=== PATIENT | female | born 1990 | race Caucasian/White ===

== ENCOUNTER → 2017-03-01 | Outpatient (REF) | payer OTHER | LOC: M LAB REF 16:48 | PROVIDERS: ATTEND Advanced Practice Midwife | DX: Z36.89 Encounter for other specified antenatal screening (principal); Z3A.00 Weeks of gestation of pregnancy not specified ==

== ENCOUNTER 2017-04-02 07:34 | Inpatient (IN) | payer OTHER ==
[2017-04-02] MEDS: PENICILLIN G POTASSIUM IV 5 MU in D5W MINI-BAG PLUS 100 ML IV ×2 (07:09→22:53)
[2017-04-02 10:13] LABS: HEMATOCRIT 36.3 % (36.0-47.0); MEAN CORPUSCULAR HEMOGLOBIN 28.5 pg (27.0-33.0); MEAN CORPUSCULAR HGB CONC 33.1 g/dl (32.0-36.5); MEAN CORPUSCULAR VOLUME 86.2 fl (80.0-96.0); PLATELET COUNT, AUTOMATED 262 10^3/uL (150-450); RED BLOOD COUNT 4.21 10^6/uL (4.00-5.40); RED CELL DISTRIBUTION WIDTH 13.8 % (11.5-14.5); WHITE BLOOD COUNT 12.3 10^3/uL (4.0-10.0)
[2017-04-02] MEDS: miSOPROStol 50 MCG 1/2 TAB (S0191) PO ×3 (10:20→18:34)
[2017-04-02 10:35] LABS: AMPHETAMINES URINE REFLEX NEGATIVE (NEGATIVE); BARBITURATES URINE REFLEX NEGATIVE (NEGATIVE); BENZODIAZEPINES URINE REFLEX NEGATIVE (NEGATIVE); CANNABINOIDS URINE REFLEX NEGATIVE (NEGATIVE); COCAINE METABOLITE URINE REFLE NEGATIVE (NEGATIVE); METHADONE URINE REFLEX NEGATIVE (NEGATIVE); OPIATES URINE REFLEX NEGATIVE (NEGATIVE); PHENCYCLIDINE URINE REFLEX NEGATIVE (NEGATIVE)
[2017-04-02 10:38] LABS: ALT/SGPT 17 U/L (12-78); AST/SGOT 17 U/L (7-37); BILIRUBIN,TOTAL 0.2 MG/DL (0.2-1.0); CREATININE FOR GFR 0.55 MG/DL (0.55-1.02); GLOMERULAR FILTRATION RATE > 60.0 (>60); LDH LACTATE DEHYDROGENASE 169 U/L (84-246); URIC ACID 4.5 MG/DL (2.6-6.0)
[2017-04-02] MEDS ORDERED: PENICILLIN G POTASSIUM IV 2.5 MU in APPROPRIATE DILUENT 1 EA IV (13:15)
[2017-04-02] MEDS: OXYTOCIN DRIP 30 UNITS in APPROPRIATE DILUENT 1 EA IV (22:50)
[2017-04-02] MEDS: LR 1,000 ML IV (22:50)
[2017-04-03] MEDS: LR 1,000 ML IV ×2 (00:30→06:35)
[2017-04-03] MEDS ORDERED: FENTANYL 2MCG/ML ROPIVACAINE 0.2% IN 0.9% NACL 200ML IVBAG As Ordered (00:45)
[2017-04-03] MEDS ORDERED: ePHEDrine SULFATE 25 MG/5 ML(5MG/ML) SYRINGE As Ordered (01:59)
[2017-04-03] MEDS: ePHEDrine SULFATE 25 MG/5 ML(5MG/ML) SYRINGE IV ×3 (02:03→07:40)
[2017-04-03] MEDS ORDERED: NALOXONE INJ 0.4 MG/1 ML VIAL (J2310) IV (02:15)
[2017-04-03] MEDS ORDERED: EPIDURAL/PCA KEYS XX (02:15)
[2017-04-03] MEDS ORDERED: diphenhydrAMINE INJ 50MG/ML VIAL (J1200) IV (02:15)
[2017-04-03] MEDS ORDERED: REFRIGERATOR IV KEYS XX (02:15)
[2017-04-03] MEDS ORDERED: EPIDURAL COMMENT XX (02:15)
[2017-04-03] MEDS ORDERED: ONDANSETRON 4MG/2ML VIAL (J2405) IV (02:15)
[2017-04-03] MEDS: PENICILLIN G POTASSIUM IV 2.5 MU in APPROPRIATE DILUENT 1 EA IV ×3 (03:06→11:09)
[2017-04-03] MEDS: FENTANYL/ROPIVACAINE/NACL BAG 200 ML EPIDURAL (07:09)
[2017-04-03 13:54] LABS: CORD GAS ABE V -10.1; CORD GAS HCO3 V 20.5 MEQ/L; CORD GAS O2 SAT V 21.7 %; CORD GAS PCO2 V 63.8 mmHg; CORD GAS PH V 7.124 UNITS; CORD GAS PO2 V 15.7 mmHg; CORD GAS SBC V 14.9 MEQ/L; CORD GAS TCO2 V 22.4 MEQ/L
[2017-04-03 13:56] LABS: CORD GAS ABE A -10.4; CORD GAS HCO3 A 20.8 MEQ/L; CORD GAS O2 SAT A 17.3 %; CORD GAS PCO2 A 67.6 mmHg; CORD GAS PH A 7.105 UNITS; CORD GAS PO2 A 14.2 mmHg; CORD GAS SBC A 14.6 MEQ/L; CORD GAS TCO2 A 22.8 MEQ/L
[2017-04-03] MEDS: OXYTOCIN DRIP 30 UNITS in APPROPRIATE DILUENT 1 EA IV (14:08)
[2017-04-03] MEDS ORDERED: ANUSOL HC CREAM 30GM TOP (14:15)
[2017-04-03] MEDS ORDERED: METHYLERGONOVINE MALEATE 0.2 MG TAB PO (14:15)
[2017-04-03] MEDS: DIBUCAINE 1% OINTMENT 30GM TOP (17:24)
[2017-04-03] MEDS: IBUPROFEN 800 MG TAB PO (17:24)
[2017-04-03] MEDS: RHOGAM 300 MCG (1500 IU) INJ (J2790) IM (19:48)
[2017-04-03] MEDS: MEASLES,MUMPS,RUBELLA VACCINE INJ (MMR-II) (90707) SC (19:48)
[2017-04-03] MEDS: ACETAMINOPHEN 500 MG TAB PO (20:29)
[2017-04-04] MEDS: PRENATAL VITAMINS CHEWABLE TABLET PO (07:14)
[2017-04-04] MEDS: IBUPROFEN 800 MG TAB PO ×2 (07:23→19:43)
[2017-04-04] MEDS: ACETAMINOPHEN 500 MG TAB PO (12:49)
[2017-04-04] MEDS: DOCUSATE SODIUM 100 MG CAP PO (19:42)
[2017-04-05] MEDS: ACETAMINOPHEN 500 MG TAB PO ×2 (01:29→10:42)
[2017-04-05] MEDS: IBUPROFEN 800 MG TAB PO (05:40)
[2017-04-05] MEDS: PRENATAL VITAMINS CHEWABLE TABLET PO (09:00)
== END 2017-04-05 11:30 | disposition home or self-care (01) | DRG 560 ==
LOC: M LDI 07:34 → M OBS 04-03 17:13
PROC: 0KQM0ZZ Repair Perineum Muscle, Open Approach (ICD-10-PCS; 2017-04-02)
PROC: 3E0DXGC Introduction of Other Therapeutic Substance into Mouth and Pharynx, External Approach (ICD-10-PCS; 2017-04-02)
PROC: 10D07Z6 Extraction of Products of Conception, Vacuum, Via Natural or Artificial Opening (ICD-10-PCS; principal; 2017-04-03)
DX: O48.0 Post-term pregnancy (principal); O76 Abnormality in fetal heart rate and rhythm complicating labor and delivery; Z37.0 Single live birth; Z3A.41 41 weeks gestation of pregnancy; Z91.410 Personal history of adult physical and sexual abuse; O70.1 Second degree perineal laceration during delivery

== ENCOUNTER → 2017-06-09 | Outpatient (REF) | payer OTHER | LOC: M LAB REF 18:41 | DX: Z12.4 Encounter for screening for malignant neoplasm of cervix (principal) ==

== ENCOUNTER → 2017-11-16 | Outpatient (CLI) | payer OTHER | LOC: M WUC 09:31 | DX: M25.561 Pain in right knee (principal); M25.562 Pain in left knee | CPT/HCPCS: 73564 ==

== ENCOUNTER → 2017-12-02 | Outpatient (REF) | payer OTHER | LOC: M SFHCLERA 18:35 | DX: J02.9 Acute pharyngitis, unspecified (principal) ==

== ENCOUNTER 2018-02-24 23:22 | Emergency (ER) | payer OTHER ==
[2018-02-25] MEDS ORDERED: PERCOCET 5MG/325MG TAB PO
[2018-02-25] MEDS: IBUPROFEN 800 MG TAB PO (00:02)
== END 2018-02-25 02:30 | disposition home or self-care (01) ==
LOC: M ED 02-25 02:30
DX: S83.92XA Sprain of unspecified site of left knee, initial encounter (principal); W10.8XXA Fall (on) (from) other stairs and steps, initial encounter; Y92.018 Other place in single-family (private) house as the place of occurrence of the external cause; F33.9 Major depressive disorder, recurrent, unspecified; F41.9 Anxiety disorder, unspecified
CPT/HCPCS: 73564

== ENCOUNTER → 2019-01-17 | Outpatient (REF) | payer OTHER ==
[~2019-01-17] MED LIST: IBUP-1114 PO; MAPA500T2 PO; PRENTAB9 PO
== END ==
LOC: M SFHCLERA 11:46
PROVIDERS: ATTEND Nurse Practitioner Family
DX: J02.9 Acute pharyngitis, unspecified (principal)

== ENCOUNTER → 2020-01-11 | Outpatient (REF) | payer OTHER | LOC: M SFHCWAGY 17:18 | PROVIDERS: ATTEND Advanced Practice Midwife | DX: N92.0 Excessive and frequent menstruation with regular cycle (principal) ==

== ENCOUNTER → 2020-01-11 | Outpatient (REF) | payer OTHER ==
[2020-01-11 17:28] LABS: HEMATOCRIT 46.4 % (36.0-47.0); HEMOGLOBIN 14.6 g/dl (12.0-15.5); MEAN CORPUSCULAR HEMOGLOBIN 28.7 pg (27.0-33.0); MEAN CORPUSCULAR HGB CONC 31.5 g/dl (32.0-36.5); MEAN CORPUSCULAR VOLUME 91.3 fl (80.0-96.0); PLATELET COUNT, AUTOMATED 302 10^3/uL (150-450); RED BLOOD COUNT 5.08 10^6/uL (4.00-5.40); WHITE BLOOD COUNT 9.1 10^3/uL (4.0-10.0)
== END ==
LOC: M PLALAB 15:28
PROVIDERS: ATTEND Advanced Practice Midwife
DX: N92.0 Excessive and frequent menstruation with regular cycle (principal)

== ENCOUNTER → 2020-01-23 | Outpatient (CLI) | payer OTHER ==
--- NOTE | 2020-01-24 11:43 | REP ---
INDICATION: N92.0 EXCESSIVE AND FREQUENT MENSTRUATION COMPARISON: 01/01/2013 TECHNIQUE: Transabdominal pelvic ultrasound followed by transvaginal examination for better evaluation of the endometrium and adnexa with color Doppler evaluation of the ovaries. FINDINGS: Bladder is unremarkable and measures 9.2 x 12.8 x 8.8 cm. Normal anteverted uterus measures 8.6 x 3.3 x 5.9 cm. The endometrial complex measures 7.0 mm thickness. No discrete uterine or endometrial abnormalities are appreciated. Bilateral ovaries are normal in appearance and vascularity without evidence for torsion. Right ovary measures 4.0 x 2.0 x 1.8 cm; R I = 0.52. Left ovary measures 4.4 x 2.3 x 2.3 cm; R I = 0.61. No pelvic fluid or adnexal mass lesion. IMPRESSION: Normal pelvic ultrasound <Electronically signed by Chip Rivera > 01/24/20 [id number]
== END ==
LOC: M PLAIMG 09:04
PROVIDERS: ATTEND Advanced Practice Midwife
DX: N92.0 Excessive and frequent menstruation with regular cycle (principal)

== ENCOUNTER 2021-01-18 21:53 | Observation (INO) | payer OTHER ==
[~2021-01-18] VITALS: Ht 172.7 cm; Wt 95.1 kg
--- OUTSIDE RECORDS SUMMARY | 2021-01-18 22:05 | CCD ---
Author Author [facility] Organization [facility] Address Unknown Phone Unavailable Care Team Providers Care Cinder Worker Name Role Phone Maring, Leonid PA Unavailable Unavailable Maring, Leonid PA Unavailable Unavailable Maring, Leonid PA Unavailable Unavailable Maring, Leonid PA Unavailable Unavailable Maring, Leonid PA Unavailable Unavailable Maring, Leonid PA Unavailable Unavailable Maring, Leonid PA Unavailable Unavailable Maring, Leonid PA Unavailable Unavailable Maring, Leonid PA Unavailable Unavailable Maring, Leonid PA Unavailable Unavailable Maring, Leonid PA Unavailable Unavailable Maring, Leonid PA Unavailable Unavailable Maring, Leonid PA Unavailable Unavailable Maring, Leonid PA Unavailable Unavailable Maring, Leonid PA Unavailable Unavailable Maring, Leonid PA Unavailable Unavailable LETTIERE, A CALE PA Unavailable Unavailable LETTIERE, A CALE PA Unavailable Unavailable LETTIERE, A CALE PA Unavailable Unavailable LETTIERE, Mason MADSEN PA Unavailable Unavailable LETTIERE, Mason MADSEN PA Unavailable Unavailable LETTIERE, A CALE PA Unavailable Unavailable LETTIERE, A CALE PA Unavailable Unavailable LETTIERE, A CALE PA Unavailable Unavailable LETTIERE, A CALE PA Unavailable Unavailable LETTIERE, A CALE PA Unavailable Unavailable LETTIERE, A CALE PA Unavailable Unavailable LETTIERE, A CALE PA Unavailable Unavailable LETTIERE, A CALE PA Unavailable Unavailable LETTIERE, A CALE PA Unavailable Unavailable LETTIERE, A CALE PA Unavailable Unavailable LETTIERE, A CALE PA Unavailable Unavailable LETTIERE, A CALE PA Unavailable Unavailable LETTIERE, A CALE PA Unavailable Unavailable LETTIERE, A CALE PA Unavailable Unavailable LETTIERE, A CALE PA Unavailable Unavailable LETTIERE, A CALE PA Unavailable Unavailable LETTIERE, A CALE PA Unavailable Unavailable LETTIERE, A CALE PA Unavailable Unavailable LETTIERE, A CALE PA Unavailable Unavailable LETTIERE, A CALE PA Unavailable Unavailable LETTIERE, A CALE PA Unavailable Unavailable LETTIERE, A CALE PA Unavailable Unavailable LETTIERE, A CALE PA Unavailable Unavailable LETTIERE, A CALE PA Unavailable Unavailable LETTIERE, A CALE PA Unavailable Unavailable LETTIERE, A CALE PA Unavailable Unavailable Re-disclosure Warning The records that you are about to access may contain information from federally-assisted alcohol or drug abuse programs. If such information is present, then the following federally mandated warning applies: This information has been disclosed to you from records protected by federal confidentiality rules (42 CFR part 2). The federal rules prohibit you from making any further disclosure of this information unless further disclosure is expressly permitted by the written consent of the person to whom it pertains or as otherwise permitted by 42 CFR part 2. A general authorization for the release of medical or other information is NOT sufficient for this purpose. The Federal rules restrict any use of the information to criminally investigate or prosecute any alcohol or drug abuse patient.The records that you are about to access may contain highly sensitive health information, the redisclosure of which is protected by Article 27-F of the [facility] Public Health law. If you continue you may have access to information: Regarding HIV / AIDS; Provided by facilities licensed or operated by the [facility] Office of Mental Health; or Provided by the [facility] Office for People With Developmental Disabilities. If such information is present, then the following [facility] mandated warning applies: This information has been disclosed to you from confidential records which are protected by state law. State law prohibits you from making any further disclosure of this information without the specific written consent of the person to whom it pertains, or as otherwise permitted by law. Any unauthorized further disclosure in violation of state law may result in a fine or snf sentence or both. A general authorization for the release of medical or other information is NOT sufficient authorization for further disc losure. Family History Family Member Name Family Member Gender Family Member Status Date o f Status Description Data Source(s) Unknown Unknown Problem [facility]) currently Unknown Unknown Problem MEDENT ([facility], ) Unknown Male Problem MEDENT ([facility] Unknown Male Problem [facility] ([facility]) UNKNOWN IF ANY Unknown Female Problem MEDENT ([facility]) Unknown Female Problem MEDENT ([facility]) Unknown Unknown Problem MEDENT ([facility]) Encounters Encounter Providers Location Date Indications Data Source(s ) Outpatient Attender: CALE SIN Radha torresy 10/10/2020 04:20:00 PM EDT MEDENT ([facility] Outpatient Attender: Leonid ISN 05/11/19 09:37:48 AM EST - 05/11/2020 10:10:38 AM EST DocuTap ([facility] ) Outpatient 05/11/2020 09:28:28 AM EST DocuTap ([facility]) (WC 20ESGYN) WCenter 20 Min Est It [employer] Analyst [address] [place] [address] 02/11/2020 12:00:00 AM EST eCW1 ([facility]) Outpatient [address] [facility] [address] 01/11/2020 12:00:00 AM EDT eCW1 ([facility]) Immunizations Vaccine Date Status Description Data Source(s) COVID-19 VACCINE Moderna 12/02/2020 12:00:00 AM EDT completed [place] Vaccine Series Complete: YESThis Data wa s Submitted to [facility] [employer]. COVID-19 VACCINE Moderna 11/03/2020 12:00:00 AM EDT completed [place] Vaccine Series Complete: NOThis Data was Submitted to [facility] [employer]. Medications Medication Brand Name Start Date Product Form Dose Route Admi nistrative Instructions Pharmacy Instructions Status Indications Reaction Description Data Source(s) Prednisone 20 MG Oral Tablet Prednisone 10/10/2020 12:00:00 AM EDT active MEDENT ([facility]) Insurance Providers Payer name Policy type / Coverage type Policy ID Covered green party ID Covered green party's relationship to arias Policy Arias Plan Information MAGEN EXCHANGE U [id number] Self [id number] [employer] [id number] Self [id number] MAGEN EXCHANGE U [id number] Self [id number] [employer] [id number] Self [id number] RPR- Needs Payer Match [id number] Self [id number] [place] [employer] [id number] Spouse [id number] MAGEN [facility] O [id number] S 74 [id number] ANSI-Commercial [id number] [place] [facility] Commercial [id number] 00 [id number] Family Dependent [id number] Magen [facility] [employer] [id number] Self [id number] Magen [facility] [employer] [id number] Self [id number] [facility] [id number] 18 74 [id number] [place] [facility] [employer] [id number] Self [id number] [place] [facility] [employer] [id number] Self [id number] [employer] [id number] Self [employer] for [employer] UNAVAILABLE 18 UNAVAILABLE [employer] for [employer] Employees [id number] 18 [id number] SELF PAY UNAVAILABLE SP UNAVAILA BLE [employer] [id number] MO2 [id number] [employer] P [id number] C [id number] MAGEN [id number] SP [id number] 400 [place] O [id number] S 74 [id number] MAGEN [id number] SP [id number] [place] Care [facility] [id number] Family Dependent [id number] [facility] [id number] 18 74 [id number] Problems, Conditions, and Diagnoses No Information Surgeries/Procedures Procedure Description Date Indications Data Source(s) OFFICE OUTPATIENT VISIT 15 MINUTES 10/10/2020 12:00:00 AM EDT MEDENT ([facility]) Results ID Date Data Source [id number] 05/11/2020 12:00:00 AM EST [facility] Name Value Range Interpretation Code Description Data Aubree rce(s) Supporting Document(s) SARS coronavirus 2 RNA [Presence] in Res piratory specimen by ODILON with probe detection [facility] Clarence and reported by Busy Moos. ID Date Data Source [id number] 05/11/2020 12:00:00 AM EST [facility] Name Value Range Interpretation Code Description Data Aubree rce(s) Supporting Document(s) Carestart Rapid COVID Antigen Test Negative [facility] This lab was reported by Linette [facility] Annemarie de leon. ID Date Data Source PAP REQUEST FOR SERVICE 01/28/2020 01:43:30 PM EST eCW1 ([facility]) Name Value Range Interpretation Code Description Data Aubree rce(s) Supporting Document(s) PAP REQUEST FOR SERVICE eCW1 ( [facility]) ID Date Data Source CBC - Complete Blood Count 01/14/2020 09:33:27 AM EDT eCW1 ( [facility]) Name Value Range Interpretation Code Description Data Aubree rce(s) Supporting Document(s) 5.08 RED BLOOD COUNT eCW1 ([facility]) 9.1 WHITE BLOOD COUNT eCW1 ([facility]) 91.3 MEAN CORPUSCULAR VOLUME eCW1 ( [facility]) 46.4 HEMATOCRIT eCW1 ([facility]) 14.6 HEMOGLOBIN eCW1 ([facility]) 28.7 MEAN CORPUSCULAR HEMOGLOBIN eC W1 ([facility]) 302 PLATELET COUNT, AUTOMATED eCW1 ([facility]) 12.3 RED CELL DISTRIBUTION WIDTH eC W1 ([facility]) 31.5 MEAN CORPUSCULAR HGB CONC eCW1 ([facility]) ID Date Data Source TSH 01/14/2020 09:33:16 AM EDT eCW1 ([facility]) Name Value Range Interpretation Code Description Data Aubree rce(s) Supporting Document(s) 2.300 THYROID STIMULATING HORMONE eC W1 ([facility]) Procedure Social History Code Duration Value Status Description Data Source(s ) Smoking 10/10/2020 12:00:00 AM EDT Patient has never smoked co mpleted Patient has never smoked MEDENT ([facility]) Smoking 02/08/2020 12:00:00 AM EST Never Smoker completed Never S moker eCW1 ([facility]) Smoking 01/11/2020 12:00:00 AM EDT Never Smoker completed Never S moker eCW1 ([facility]) Vital Signs ID Date Data Source UNK Name Value Range Interpretation Code Description Data Source(s) Systolic blood pressure 123 mm[Hg] 123 mm[Hg] M EDENT ([facility]) Diastolic blood pressure 82 mm[Hg] 82 mm[Hg] MEDENT ([facility]) Heart rate 75 /min 75 /min MEDENT ([facility]) Respiratory rate 16 /min 16 /min [facility] ( [facility]) Oxygen saturation in Arterial blood by Pulse oximetry 98 % 98 % MEDENT ([facility], [facility]) Body temperature 97.5 [degF] 97.5 [degF] MEDENT ([facility], [facility]) Body weight 215.00 [lb_av] 215.00 [lb_av] MEDEN T ([facility], [facility]) Body height 67 [in_i] 67 [in_i] MEDENT ([facility]) 5'7" Body mass index (BMI) [Ratio] 33.7 kg/m2 33.7 k g/m2 MEDENT ([facility], [facility]) Body weight 222.2 [lb_av] 222.2 [lb_av] eCW1 ([facility]) Body weight 100.79 kg 100.79 kg eCW1 ([facility]) Body height 67.5 [in_i] 67.5 [in_i] eCW1 ([facility]) Body mass index (BMI) [Ratio] 34.28 kg/m2 34.28 kg/m2 W1 ([facility]) Systolic blood pressure 112 mm[Hg] 112 mm[Hg] e CW1 ([facility]) Diastolic blood pressure 80 mm[Hg] 80 mm[Hg] eCW1 ([facility]) Body weight 221.4 [lb_av] 221.4 [lb_av] eCW1 ([facility]) Body weight 100.43 kg 100.43 kg eCW1 ([facility]) Body height 67.5 [in_i] 67.5 [in_i] eCW1 ([facility]) Body mass index (BMI) [Ratio] 34.16 kg/m2 34.16 kg/m2 W1 ([facility]) Systolic blood pressure 140 mm[Hg] 140 mm[Hg] e CW1 ([facility]) Diastolic blood pressure 82 mm[Hg] 82 mm[Hg] eCW1 ([facility])
[2021-01-19] MEDS ORDERED: ONDANSETRON 4MG/2ML VIAL IV ONE (01:10)
[2021-01-19] MEDS ORDERED: KETOROLAC 30 MG/ML 1ML VIAL IV ONE (01:10)
--- OUTSIDE RECORDS SUMMARY | 2021-01-19 01:54 | CCD ---
Author Author [facility] Organization [facility] Address Unknown Phone Unavailable Care Team Providers Care Lumber Tripper Name Role Phone Maring, Leonid PA Unavailable [...] is protected by Article 27-F of the [facility] Public Health law. If you continue you may have access to information: Regarding HIV / AIDS; Provided by facilities licensed or operated by the [facility] Office of Mental Health; or Provided by the [facility] Office for People With Developmental Disabilities. If such information is present, then the following [facility] mandated warning applies: This information has been [...] law may result in a fine or fci sentence or both. A general authorization for the release of medical or other information is NOT sufficient authorization for further disc losure. Family History Family Member Name Family Member Gender Family Member Status Date o f Status Description Data Source(s) Unknown Unknown Problem [facility]) currently Unknown Unknown Problem [facility] ) Unknown Male Problem MEDENT ([facility]) Unknown Male Problem MEDENT ([facility]) UNKNOWN IF ANY Unknown Female Problem MEDENT ([facility]) Unknown Female Problem MEDENT ([facility]) Unknown Unknown Problem MEDENT ([facility]) Encounters Encounter Providers Location Date Indications Data Source(s ) Outpatient Attender: CALE Whiteheadawilda Forde Kody shook 10/10/2020 04:20:00 PM EDT MEDENT ([facility]) Outpatient Attender: Leonid SIN 05/11/19 09:37:48 AM EST - 05/11/2020 10:10:38 AM EST DocuTap ([facility] ) Outpatient 05/11/2020 09:28:28 AM EST DocuTap ([facility]) (WC 20ESGYN) WCenter 20 Min Est Cake Wrapper [address] [place] [address] 02/11/2020 12:00:00 AM EST [facility]patient [address] [facility] [address] 01/11/2020 12:00:00 AM EDT eCW1 ([facility]) Immunizations Vaccine Date Status Description Data Source(s) COVID-19 VACCINE Moderna 12/02/2020 12:00:00 AM EDT completed [place] Vaccine Series Complete: YESThis Data wa s Submitted to [facility] Via [employer]. COVID-19 VACCINE Moderna 11/03/2020 12:00:00 AM EDT completed [place] Vaccine Series Complete: NOThis Data was Submitted to [facility] [employer]. Medications Medication Brand Name Start Date Product Form Dose Route Admi nistrative Instructions Pharmacy Instructions Status Indications Reaction Description Data Source(s) Prednisone 20 MG Oral Tablet Prednisone 10/10/2020 12:00:00 AM EDT active MEDENT ([facility]) Insurance Providers Payer name Policy type / Coverage type Policy ID Covered republican ID Covered republican's relationship to hightower Policy Hightower Plan Information MAGEN I [id number] Self [id number] MAGEN EXCHANGE U [id number] Self [id number] MAGEN EXCHANGE U [id number] Self [id number] RPR- Needs Payer Match [id number] Self [id number] [place] [employer] [id number] Spouse [id number] [place] [employer] [id number] Self [id number] ANSI-Commercial [id number] Magen [facility] Commercial [id number] 00 [id number] Family Dependent [id number] [facility] [employer] [id number] Self [id number] [facility] [employer] [id number] Self [id number] [facility] [id number] 18 74 [id number] Magen [facility] [employer] [id number] Self [id number] Magen [facility] [employer] [id number] Self [id number] [employer] Commercial [id number] Self [employer] for [employer] UNAVAILABLE 18 UNAVAILABLE [employer] for [employer] Employees [id number] 18 [id number] SELF PAY UNAVAILABLE SP UNAVAILA BLE [employer] [id number] MO2 [id number] MAGEN [id number] SP [id number] [employer] P [id number] C [id number] MAGEN [id number] SP [id number] MAGEN CARE [place] O [id number] S 74 [id number] Magen Care [facility] [employer] [id number] Family Dependent [id number] MAGEN [facility] [id number] [id number] [facility] [id number] S 74 [id number] Problems, Conditions, and Diagnoses No Information Surgeries/Procedures Procedure Description Date Indications Data Source(s) OFFICE OUTPATIENT VISIT 15 MINUTES 10/10/2020 12:00:00 AM EDT MEDENT ([facility]) Results ID Date Data Source [id number] 05/11/2020 12:00:00 AM EST [facility] Name Value Range Interpretation Code Description Data Aubree rce(s) Supporting Document(s) SARS coronavirus 2 RNA [Presence] in Res piratory specimen by ODILON with probe detection NE[facility]IVE [facility] Clarence and reported by Bango. ID Date Data Source [id number] 05/11/2020 12:00:00 AM EST [facility] Name Value Range Interpretation Code Description Data Aubree rce(s) Supporting Document(s) Carestart Rapid COVID Antigen Test Negative [facility] This lab was reported by Linette [facility] Annemarie de leon. ID Date Data Source PAP REQUEST FOR SERVICE 01/28/2020 01:43:30 PM EST eCW1 ([facility]) Name Value Range Interpretation Code Description Data Aubree rce(s) Supporting Document(s) PAP REQUEST FOR SERVICE eCW1 ( [facility]) ID Date Data Source CBC - Complete Blood Count 01/14/2020 09:33:27 AM EDT eCW1 ( [facility]) Name Value Range Interpretation Code Description Data Aubree rce(s) Supporting Document(s) 5.08 RED BLOOD COUNT eCW1 ([facility]) 9.1 WHITE BLOOD COUNT eCW1 ([facility]) 91.3 MEAN CORPUSCULAR VOLUME eCW1 ( [facility]) 46.4 HEMATOCRIT eCW1 ([facility]) 14.6 HEMOGLOBIN eCW1 ([facility]) 28.7 MEAN CORPUSCULAR HEMOGLOBIN eC W1 ([facility]) 302 PLATELET COUNT, AUTOMATED eCW1 ([facility]) 12.3 RED CELL DISTRIBUTION WIDTH eC W1 ([facility]) 31.5 MEAN CORPUSCULAR HGB CONC eCW1 ([facility]) ID Date Data Source TSH 01/14/2020 09:33:16 AM EDT [facility] Name Value Range Interpretation Code Description Data Aubree rce(s) Supporting Document(s) 2.300 THYROID STIMULATING HORMONE eC W1 ([facility]) Procedure Social History Code Duration Value Status Description Data Source(s ) Smoking 10/10/2020 12:00:00 AM EDT Patient has never smoked co mpleted Patient has never smoked MEDENT ([facility]) Smoking 02/08/2020 12:00:00 AM EST Never Smoker completed Never S moker eCW1 ([facility]) Smoking 01/11/2020 12:00:00 AM EDT Never Smoker completed Never S moker eCW1 ([facility]) Vital Signs ID Date Data Source UNK Name Value Range Interpretation Code Description Data Source(s) Systolic blood pressure 123 mm[Hg] 123 mm[Hg] M EDENT ([facility]) Diastolic blood pressure 82 mm[Hg] 82 mm[Hg] MEDENT ([facility]) Heart rate 75 /min 75 /min MED[facility] ([facility]) Respiratory rate 16 /min 16 /min [facility] ( [facility]) Oxygen saturation in Arterial blood by Pulse oximetry 98 % 98 % MEDENT ([facility]) Body temperature 97.5 [degF] 97.5 [degF] MEDENT ([facility]) Body weight 215.00 [lb_av] 215.00 [lb_av] MEDEN T ([facility]) Body height 67 [in_i] 67 [in_i] MEDENT ([facility]) 5'7" Body mass index (BMI) [Ratio] 33.7 kg/m2 33.7 k g/m2 [facility]) Body weight 222.2 [lb_av] 222.2 [lb_av] eCW1 ([facility]) Body weight 100.79 kg 100.79 kg [facility] Body height 67.5 [in_i] 67.5 [in_i] eCW1 ([facility]) Body mass index (BMI) [Ratio] 34.28 kg/m2 34.28 kg/m2 W1 ([facility]) Systolic blood pressure 112 mm[Hg] 112 mm[Hg] e CW1 ([facility]) Diastolic blood pressure 80 mm[Hg] 80 mm[Hg] eCW1 ([facility]) Body weight 221.4 [lb_av] 221.4 [lb_av] eCW1 ([facility]) Body weight 100.43 kg 100.43 kg eCW1 [facility] Body height 67.5 [in_i] 67.5 [in_i] eCW1 ([facility]) Body mass index (BMI) [Ratio] 34.16 kg/m2 34.16 kg/m2 W1 ([facility]) Systolic blood pressure 140 mm[Hg] 140 mm[Hg] e CW1 ([facility]) Diastolic blood pressure 82 mm[Hg] 82 mm[Hg] eCW1 ([facility])
[2021-01-19 02:29] LABS: BASO # 0.1 10^3/uL (0.0-0.2); BASO % 0.6 % (0.0-1.0); EOS % 0.3 % (0.0-3.0); HEMATOCRIT 39.7 % (36.0-47.0); HEMOGLOBIN 13.1 g/dl (12.0-15.5); LYMPH # 1.9 10^3/uL (1.5-5.0); LYMPH % 19.4 % (24.0-44.0); MEAN CORPUSCULAR HEMOGLOBIN 29.3 pg (27.0-33.0); MEAN CORPUSCULAR VOLUME 88.8 fl (80.0-96.0); MONO # 1.1 10^3/uL (0.0-0.8); NEUTROPHILS # 6.5 10^3/uL (1.5-8.5); NEUTROPHILS % 68.4 % (36.0-66.0); PLATELET COUNT, AUTOMATED 213 10^3/uL (150-450); RED BLOOD COUNT 4.47 10^6/uL (4.00-5.40); WHITE BLOOD COUNT 9.6 10^3/uL (4.0-10.0)
[2021-01-19] MEDS ORDERED: ISOVUE-370 76% 100ML VIAL As Ordered ONE (03:06)
--- NOTE | 2021-01-19 04:15 | REPVR ---
PROCEDURE INFORMATION: Exam: CT Neck With Contrast Exam date and time: 01/19/2021 3:13 AM Age: 30 years old Clinical indication: Painful swallowing; Additional info: Assess for tonsilitis, abscess TECHNIQUE: Imaging protocol: Computed tomography images of the neck with contrast. Radiation optimization: All CT scans at this facility use at least one of these dose optimization techniques: automated exposure control; mA and/or kV adjustment per patient size (includes targeted exams where dose is matched to clinical indication); or iterative reconstruction. Contrast material: ISO 370; Contrast volume: 75 ml; Contrast route: INTRAVENOUS (IV); COMPARISON: No relevant prior studies available. FINDINGS: Nasopharynx: Unremarkable. Oropharynx: Both tonsils are edematous and enlarged. No drainable peritonsillar abscess. Hypopharynx: Unremarkable. Larynx: Unremarkable. Normal epiglottis. Retropharyngeal space: Unremarkable. Submandibular/Parotid glands: Normal. Glands are normal in size. Thyroid: Normal. No enlarged or calcified nodules. Lymph nodes: There are multiple enlarged level 1 and level 2 lymph nodes measuring up to 2.2 cm. Trachea: Visualized trachea is unremarkable. Lungs: There are two noncalcified oval nodules in the right upper lobe measuring 10 mm and 6 mm. Bones/joints: Unremarkable. No acute fracture. Soft tissues: Unremarkable. No significant soft tissue swelling. IMPRESSION: Acute tonsillitis with enlarged edematous tonsils and reactive lymphadenopathy. No drainable peritonsillar abscess. Electronically signed by: Michael Alvares On 01/19/2021 04:15:32 AM
[2021-01-19] MEDS ORDERED: LEVAINH INH (05:04)
[2021-01-19] MEDS ORDERED: HOME MED LIST COMPLETE! XX SCH (05:05)
[2021-01-19] MEDS ORDERED: AMPICILLIN SOD/SULBACTAM SOD 3 GM in D5W MINI-BAG PLUS 100 ML IV ONE (05:10)
[2021-01-19] MEDS ORDERED: MORPHINE 2 MG/ML 1ML VIAL (J2270) IV PRN (05:30)
--- OUTSIDE RECORDS SUMMARY | 2021-01-19 05:37 | CCD ---
Author Author [facility] Organization [facility] Address Unknown Phone Unavailable Care Team Providers Care Pump Assembler Name Role Phone Maring, Leonid PA Unavailable [...] is protected by Article 27-F of the [facility] Public Health law. If you continue you may have access to information: Regarding HIV / AIDS; Provided by facilities licensed or operated by the [facility] Office of Mental Health; or Provided by the [facility] Office for People With Developmental Disabilities. If such information is present, then the following [facility] mandated warning applies: This information has been [...] law may result in a fine or intermediate sentence or both. A general authorization for the release of medical or other information is NOT sufficient authorization for further disc losure. Family History Family Member Name Family Member Gender Family Member Status Date o f Status Description Data Source(s) Unknown Unknown Problem [facility] currently Unknown Unknown Problem [facility] Unknown Male Problem MEDENT ([facility]) Unknown Male Problem [facility] ([facility]) UNKNOWN IF ANY Unknown Female Problem MEDENT ([facility]) Unknown Female Problem MEDENT ([facility]) Unknown Unknown Problem MEDENT ([facility]) Encounters Encounter Providers Location Date Indications Data Source(s ) Outpatient Attender: CALE Whiteheadawilda Forde Kody shook 10/10/2020 04:20:00 PM EDT [facility] ([facility]) Outpatient Attender: Leonid SIN 05/11/19 09:37:48 AM EST - 05/11/2020 10:10:38 AM EST DocuTap ([facility] ) Outpatient 05/11/2020 09:28:28 AM EST DocuTap ([facility]) (WC 20ESGYN) 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 COVID-19 VACCINE Moderna 11/03/2020 12:00:00 AM EDT completed [facility] Vaccine Series Complete: NOThis Data was Submitted to [facility] Via [employer]. Medications Medication Brand Name Start Date Product Form Dose Route Admi nistrative Instructions Pharmacy Instructions Status Indications Reaction Description Data Source(s) Prednisone 20 MG Oral Tablet Prednisone 10/10/2020 12:00:00 AM EDT active MEDENT ([facility]) Insurance Providers Payer name Policy type / Coverage type Policy ID Covered green party ID Covered green party's relationship to hightower Policy Hightower Plan Information MAGEN I [id number] Self [id number] MAGEN EXCHANGE U [id number] Self [id number] MAGEN EXCHANGE U [id number] Self [id number] [employer] [id number] Self [id number] RPR- Needs Payer Match [id number] Self [id number] [facility] [employer] [id number] Spouse [id number] ANSI-Commercial [id number] Magen [facility] GetBack [id number] Family Dependent [id number] [place] [facility] GetBack [id number] Self [id number] [facility] GetBack [id number] 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 [id number] 18 74 [id number] [place]ARE [place] O [id number] S [id number] Problems, Conditions, and Diagnoses No Information Surgeries/Procedures Procedure Description Date Indications Data Source(s) OFFICE OUTPATIENT VISIT 15 MINUTES 10/10/2020 12:00:00 AM EDT MEDENT ([facility]) Results ID Date Data Source [id number] 05/11/2020 12:00:00 AM EST [facility] Name Value Range Interpretation Code Description Data Aubree rce(s) Supporting Document(s) SARS coronavirus 2 RNA [Presence] in Res piratory specimen by ODILON with probe detection [facility]GATIVE [facility] and reported by [employer]. ID Date Data Source [id number] 05/11/2020 12:00:00 AM EST [facility] Name Value Range Interpretation Code Description Data Aubree rce(s) Supporting Document(s) Carestart Rapid COVID Antigen Test Negative [facility] This lab was reported by [facility] Annemarie de leon. ID Date Data Source PAP REQUEST FOR SERVICE 01/28/2020 01:43:30 PM EST eCW1 ([facility]) Name Value Range Interpretation Code Description Data Aubree rce(s) Supporting Document(s) PAP REQUEST FOR SERVICE eCW1 ( [facility]) ID Date Data Source CBC - Complete Blood Count 01/14/2020 09:33:27 AM EDT eCW1 ( [facility]) Name Value Range Interpretation Code Description Data Aubree rce(s) Supporting Document(s) 5.08 RED BLOOD COUNT eCW1 ([facility]) 9.1 WHITE BLOOD COUNT eCW1 ([facility]) 91.3 MEAN CORPUSCULAR VOLUME eCW1 ( [facility]) 46.4 HEMATOCRIT eCW1 ([facility]) 14.6 HEMOGLOBIN eCW1 ([facility]) 28.7 MEAN CORPUSCULAR HEMOGLOBIN eC W1 ([facility]) 302 PLATELET COUNT, AUTOMATED eCW1 ([facility]) 12.3 RED CELL DISTRIBUTION WIDTH eC W1 ([facility]) 31.5 MEAN CORPUSCULAR HGB CONC eCW1 ([facility]) ID Date Data Source TSH 01/14/2020 09:33:16 AM EDT eCW1 ([facility]) Name Value Range Interpretation Code Description Data Aubree rce(s) Supporting Document(s) 2.300 THYROID STIMULATING HORMONE eC W1 ([facility]) Procedure Social History Code Duration Value Status Description Data Source(s ) Smoking 10/10/2020 12:00:00 AM EDT Patient has never smoked co mpleted Patient has never smoked MEDENT ([facility]) Smoking 02/08/2020 12:00:00 AM EST Never Smoker completed Never S moker eCW1 ([facility]) Smoking 01/11/2020 12:00:00 AM EDT Never Smoker completed Never S moker eCW1 ([facility]) Vital Signs ID Date Data Source UNK Name Value Range Interpretation Code Description Data Source(s) Systolic blood pressure 123 mm[Hg] 123 mm[Hg] M EDENT ([facility]) Diastolic blood pressure 82 mm[Hg] 82 mm[Hg] MEDENT ([facility]) Heart rate 75 /min 75 /min MEDENT ([facility]) Respiratory rate 16 /min 16 /min [facility] ( [facility]) Oxygen saturation in Arterial blood by Pulse oximetry 98 % 98 % MEDENT ([facility]) Body temperature 97.5 [degF] 97.5 [degF] MEDENT ([facility]) Body weight 215.00 [lb_av] 215.00 [lb_av] MEDEN T ([facility]) Body height 67 [in_i] 67 [in_i] MEDENT ([facility]) 5'7" Body mass index (BMI) [Ratio] 33.7 kg/m2 33.7 k g/m2 MEDENT ([facility]) Body weight 222.2 [lb_av] 222.2 [lb_av] eCW1 ([facility]) Body weight 100.79 kg 100.79 kg eCW1 ([facility]) Body height 67.5 [in_i] 67.5 [in_i] eCW1 ([facility]) Body mass index (BMI) [Ratio] 34.28 kg/m2 34.28 kg/m2 W1 ([facility]) Systolic blood pressure 112 mm[Hg] 112 mm[Hg] e CW1 ([facility]) Diastolic blood pressure 80 mm[Hg] 80 mm[Hg] eCW1 ([facility]) Body weight 221.4 [lb_av] 221.4 [lb_av] eCW1 ([facility]) Body weight 100.43 kg 100.43 kg eCW1 ([facility]) Body height 67.5 [in_i] 67.5 [in_i] eCW1 ([facility]) Body mass index (BMI) [Ratio] 34.16 kg/m2 34.16 kg/m2 eCW1 ([facility]) Systolic blood pressure 140 mm[Hg] 140 mm[Hg] e CW1 ([facility]) Diastolic blood pressure 82 mm[Hg] 82 mm[Hg] eCW1 ([facility])
--- NOTE | 2021-01-19 05:39 | HPEPDOC ---
[facility] Medical History & Physical Date of Admission Jan 19, 2021 Date of Service: Jan 19, 2021 History and Physical CHIEF COMPLAINT: Sore throat HISTORY OF PRESENT ILLNESS: 30-year-old female history of asthma presents to ED complaining of sore throat. Patient had presented to urgent care earlier today and was diagnosed with acute tonsillitis and was prescribed amoxicillin throat culture was done there. Patient went home but felt her pain was increasing and she could not tolerate it and decided to come to the ED. Feels it so painful she can't tolerate much by mouth. She has associated mild headache and body aches and fatigue. Endorses daughter was diagnosed with rhinovirus. Denies having strep throat in the past. At home she was febrile to 101.3. She prefers not to have IV pain medications but is okay with Tylenol. She feels she is in too much pain to go home. CT scan done in the ED does not show abscess or drainable pocket. Dr. Hall discussed the case with ENT pathology transcriptionist Dr. Riley who advised that given there is no drainable abscess he does not need to be involved patient should just be treated with antibiotics and sent home when appropriate. I discussed the plan with the patient and she agrees she'll be started on IV Unasyn and I offered her a small dose of IV morphine should her pain be excessive and she agreed. Patient will be admitted for observation. PAST MEDICAL/SURGICAL HISTORY: Asthma [place] tooth removal SOCIAL HISTORY: Denies alcohol use Denies tobacco use Denies illicit drug use. 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 FAMILY HISTORY: Reviewed and none contributory to this admission Son diagnosed with rhinovirus ALLERGIES: Please see below. REVIEW OF SYSTEMS: 10 point review of systems complete all negative otherwise stated in HPI HOME MEDICATIONS: Please see below. PHYSICAL EXAMINATION: Constitutional: Awake and alert, in no apparent distress ENT: Sclera are clear. Posterior pharynx is erythematous bilaterally the tonsils are enlarged and erythematous right side slightly larger than left. Respiratory: Lungs CTA bilaterally. No respiratory distress. No use of accessory muscles. Able to speak in full sentences. Cardiovascular: RRR S1 and S2 are normal Musculoskeletal: No lower extremity edema. Neurologic: No focal neurological deficit. Mental Status: A&O x3, normal affect Skin: No visible rashes LABORATORY DATA: See below. IMAGING: See chart MICROBIOLOGY: Please see below. ASSESSMENT/PLAN # Acute tonsillitis PLAN Admit for observation to med/surg IV Unasyn. Transitioned to Augmentin at time of discharge 10 days total. IV fluids if not tolerating food. She will try to have regular diet in the morning. Pain control with Tylenol for mild to moderate pain and IV morphine for severe pain GAS throat culture. Another culture was also already collected at urgent care. Fu with PCP after discharge. A Yousef Hospitalist Vital Signs Vital Signs Date Time Temp Pulse Resp B/P (MAP) Pulse Ox O2 Delivery O2 Flow Rate FiO2 01/19/21 04:39 68 20 120/67 (84) 98 Room Air 01/18/21 21:57 99.2 Laboratory Data Labs 24H Laboratory Tests 2 01/19/21 02:19: POC Beta HCG, Quantitative < 5.0 01/19/21 02:20: POC Glucose (Misc Panel) 87, POC Sodium (Misc Panel) 140, POC Potassium (Misc Panel) 3.5, POC Chloride (Misc Panel) 105, POC Total CO2 (Misc Panel) 24.0, POC Blood Urea Nitrogen (Misc Panel 5L, POC Ionized Calcium (Misc Panel) 4.8, POC Creatinine (Misc Panel) 0.7, POC Hematocrit (Misc Panel) 39.0 01/19/21 02:22: Immature Granulocyte % (Auto) 0.3, Neutrophils (%) (Auto) 68.4H, Lymphocytes (%) (Auto) 19.4L, Monocytes (%) (Auto) 11.0H, Eosinophils (%) (Auto) 0.3, Basophils (%) (Auto) 0.6, Neutrophils # (Auto) 6.5, Lymphocytes # (Auto) 1.9, Monocytes # (Auto) 1.1H, Eosinophils # (Auto) 0.0, Basophils # (Auto) 0.1, Nucleated Red Blood Cells % (auto) 0.0, C-Reactive Protein, Quantitative 10.50H CBC/BMP Laboratory Tests 01/19/21 02:22 Home Medications Scheduled PRN Levalbuterol Hydrochloride (Xopenex Hfa) 15 Gm Hfa.aer.ad, 2 PUFF INH Q4-6HP PRN for SOB/WHEEZING Allergies Coded Allergies: No Known Allergies (Unverified , 04/02/17) SHERRON MORRIS MD Jan 19, 2021 05:39
[2021-01-19 07:07] LABS: RSV AMPLIFICATION NEGATIVE (NEGATIVE)
[2021-01-19 08:50] VITALS: BP 108/72
[2021-01-19] MEDS: ACETAMINOPHEN TAB 650MG DOSE (2X325MG) PO PRN ×3 (09:36→21:43)
[2021-01-19] MEDS: ENOXAPARIN 40MG/0.4ML SYRINGE (J1650 PER 10MG) SC SCH (09:36)
[2021-01-19] MEDS: AMPICILLIN SOD/SULBACTAM SOD 3 GM in D5W MINI-BAG PLUS 100 ML IV SCH ×3 (13:03→23:54)
[2021-01-19] MEDS: CEPACOL LOZENGE PO PRN ×2 (17:55→21:38)
[2021-01-19 20:35] VITALS: BP 113/94
--- NOTE | 2021-01-19 21:11 | IPNPDOC ---
Subjective Date Seen The patient was seen on 01/19/21. Subjective Chief Complaint/HPI Mrs. Viera is a 30 year old female with throat pain and found to have acute tonsillitis. This morning, she denied any chest pain or dyspnea. Throat is still sore. Objective Physical Examination General Exam: Positive: Alert, Cooperative Eye Exam: Negative: Sclera icteric ENT Exam: Positive: Atraumatic Neck Exam: Positive: Supple Chest Exam: Positive: Clear to auscultation; Negative: Rales, Rhonchi, Wheezing Heart Exam: Positive: Rate Normal, Regular Rhythm Abdomen Exam: Positive: Normal bowel sounds, Soft; Negative: Tenderness Extremity Exam: Negative: Edema Neuro Exam: Positive: Normal Speech Psych Exam: Positive: Mental status NL, Mood NL Assessment /Plan Assessment Mrs. Viera is a 30 year old female with throat pain and found to have acute tonsillitis. 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 There is no drainable abscess, so ENT would not need to be involved. If patient does well overnight, and consider discharge tomorrow with 10 days of Augmentin. Plan/VTE VTE Prophylaxis Ordered?: Yes Plan 1. Acute tonsillitis IV Unasyn day 1 If she does well, she can be discharged with Augmentin for 10 days. Otherwise strep screen pending 2. Exposure to child with dctw-hyqh-ynm-mouth disease Her child was recently diagnosed with mffp-liej-eob-mouth disease Supportive care Calamine lotion 3. DVT prophylaxis Lovenox Disposition: Possible discharge tomorrow with Augmentin for 10 days VS, I&O, 24H, Fishbone Vital Signs/I&O Vital Signs Date Time Temp Pulse Resp B/P (MAP) Pulse Ox O2 Delivery O2 Flow Rate FiO2 01/19/21 20:35 98.0 67 18 113/94 (100) 99 Room Air Laboratory Data 24H LABS Laboratory Tests 2 01/19/21 02:19: POC Beta HCG, Quantitative < 5.0 01/19/21 02:20: POC Glucose (Misc Panel) 87, POC Sodium (Misc Panel) 140, POC Potassium (Misc Panel) 3.5, POC Chloride (Misc Panel) 105, POC Total CO2 (Misc Panel) 24.0, POC Blood Urea Nitrogen (Misc Panel 5L, POC Ionized Calcium (Misc Panel) 4.8, POC Creatinine (Misc Panel) 0.7, POC Hematocrit (Misc Panel) 39.0 01/19/21 02:22: Immature Granulocyte % (Auto) 0.3, Neutrophils (%) (Auto) 68.4H, Lymphocytes (%) (Auto) 19.4L, Monocytes (%) (Auto) 11.0H, Eosinophils (%) (Auto) 0.3, Basophils (%) (Auto) 0.6, Neutrophils # (Auto) 6.5, Lymphocytes # (Auto) 1.9, Monocytes # (Auto) 1.1H, Eosinophils # (Auto) 0.0, Basophils # (Auto) 0.1, Nucleated Red Blood Cells % (auto) 0.0, C-Reactive Protein, Quantitative 10.50H 01/19/21 06:16: Coronavirus (COVID-19)(PCR) NEGATIVE, Influenza Type A (RT-PCR) NEGATIVE, Influenza Type B (RT-PCR) NEGATIVE, Respiratory Syncytial Virus (PCR) NEGATIVE CBC/BMP Laboratory Tests 01/19/21 02:22 Microbiology Microbiology 01/19/21 Group A Streptococcus Screen ([facility]), Received Pending ASHLYN ESCAMILLA DO Jan 19, 2021 21:11
[2021-01-19] MEDS: CALAMINE LOTION 177 ML BTL TOP SCH (21:38)
[2021-01-20] MEDS: CEPACOL LOZENGE PO PRN ×3 (00:02→11:35)
[2021-01-20] MEDS: AMPICILLIN SOD/SULBACTAM SOD 3 GM in D5W MINI-BAG PLUS 100 ML IV SCH ×2 (05:13→11:35)
[2021-01-20 06:22] VITALS: BP 106/52
[2021-01-20] MEDS: ENOXAPARIN 40MG/0.4ML SYRINGE (J1650 PER 10MG) SC SCH (08:20)
[2021-01-20] MEDS: ACETAMINOPHEN TAB 650MG DOSE (2X325MG) PO PRN (08:20)
[2021-01-20] MEDS: CALAMINE LOTION 177 ML BTL TOP SCH (08:22)
[2021-01-20] MEDS ORDERED: INFLUENZA QUADRIVALENT PF VACCINE 0.5ML SYRINGE IM ONE (09:00)
[2021-01-20 09:34] LABS: HEMATOCRIT 40.3 % (36.0-47.0); HEMOGLOBIN 12.9 g/dl (12.0-15.5); MEAN CORPUSCULAR HEMOGLOBIN 28.6 pg (27.0-33.0); MEAN CORPUSCULAR VOLUME 89.4 fl (80.0-96.0); PLATELET COUNT, AUTOMATED 206 10^3/uL (150-450); RED BLOOD COUNT 4.51 10^6/uL (4.00-5.40); WHITE BLOOD COUNT 6.5 10^3/uL (4.0-10.0)
[2021-01-20 09:53] LABS: BLOOD UREA NITROGEN 7 MG/DL (7-18); CALCIUM LEVEL 8.9 MG/DL (8.5-10.1); CARBON DIOXIDE LEVEL 27 MEQ/L (21-32); CHLORIDE LEVEL 109 MEQ/L (98-107); CREATININE FOR GFR 0.72 MG/DL (0.55-1.30); GLOMERULAR FILTRATION RATE > 60.0 (>60); GLUCOSE, FASTING 84 MG/DL (70-100); POTASSIUM SERUM 4.2 MEQ/L (3.5-5.1); SODIUM LEVEL 140 MEQ/L (136-145)
[2021-01-20] MEDS ORDERED: CALALOT4 TOP (12:14)
[2021-01-20] MEDS ORDERED: AMOX875T2 PO (12:14)
[2021-01-20] MEDS ORDERED: CEPALOZ8 PO (12:17)
[2021-01-20] MEDS ORDERED: HYDR-643 PO (12:17)
--- NOTE | 2021-01-20 12:19 | DS.PDOC ---
Discharge Summary General Date of Admission Jan 18, 2021 at 21:54 Date of Discharge 01/20/21 Discharge Summary PROCEDURES PERFORMED DURING STAY: [None]. ADMITTING DIAGNOSES: 1. . DISCHARGE DIAGNOSES: 1. . COMPLICATIONS/CHIEF COMPLAINT: Acute Tonsillitis. HISTORY OF PRESENT ILLNESS: . HOSPITAL COURSE: . DISCHARGE MEDICATIONS: Please see below. ALLERGIES: Please see below. PHYSICAL EXAMINATION ON DISCHARGE: VITAL SIGNS: Please see below. GENERAL: HEENT: NECK: CARDIOVASCULAR EXAMINATION: RESPIRATORY EXAMINATION: ABDOMINAL EXAMINATION: EXTREMITIES: SKIN: NEUROLOGICAL EXAMINATION: PSYCHIATRIC EXAMINATION: LABORATORY DATA: Please see below. IMAGING: PROGNOSIS: ACTIVITY: [As tolerated]. DIET: DISCHARGE PLAN: DISPOSITION: . DISCHARGE INSTRUCTIONS: 1. . ITEMS TO FOLLOWUP ON ON OUTPATIENT: 1. . DISCHARGE CONDITION: [Stable]. TIME SPENT ON DISCHARGE: minutes. Vital Signs/I&Os Vital Signs Date Time Temp Pulse Resp B/P (MAP) Pulse Ox O2 Delivery O2 Flow Rate FiO2 01/20/21 06:22 97.2 60 16 106/52 (70) 97 Room Air I&O- Last 24 Hours up to 6 AM 01/20/21 06:00 Intake Total 1240 ml Output Total 0 ml Balance 1240 ml Laboratory Data Labs 24H Laboratory Tests 2 01/20/21 09:00: Nucleated Red Blood Cells % (auto) 0.0, Anion Gap 4L, Glomerular Filtration Rate > 60.0, Calcium Level 8.9 CBC/BMP Laboratory Tests 01/20/21 09:00 Microbiology Microbiology 01/19/21 Group A Streptococcus Screen ([facility]) - Final, Complete Discharge Medications Scheduled Amoxicillin/Potassium Clav (Amox-Clav 875-125 mg Tablet) 1 Each Tablet, 1 TAB PO BID Benzocaine/Menthol (Cepacol Sore Throat Lozenge) 1 Each Lozenge, 1 TAB PO Q4H for sore throat Calamine/Zinc Oxide (Calamine Lotion) 177 Ml Lotion, 0 DOSE TOP BID Hydroxyzine HCl (Hydroxyzine HCl) 10 Mg Tablet, 1 TAB PO BID for anxiety Scheduled PRN Levalbuterol Hydrochloride (Xopenex Hfa) 15 Gm Hfa.aer.ad, 2 PUFF INH Q4-6HP PRN for SOB/WHEEZING, (Reported) Allergies Coded Allergies: No Known Allergies (Unverified , 04/02/17) NAM CONTRERAS MD Jan 20, 2021 12:19
[2021-01-20] MEDS ORDERED: hydrOXYzine 10 MG TAB PO ONE (13:00)
== END 2021-01-20 13:55 | disposition home or self-care (01) ==
LOC: M ED 21:53 → M ED INP 21:54 → ENRESERV 01-19 08:20 → M MS5PR 01-19 08:50
PROVIDERS: ADMIT Family Medicine; ATTEND Family Medicine
DX: J03.91 Acute recurrent tonsillitis, unspecified (principal); J45.909 Unspecified asthma, uncomplicated; F41.9 Anxiety disorder, unspecified; F32.9 Major depressive disorder, single episode, unspecified; Z79.899 Other long term (current) drug therapy
CPT/HCPCS: 36415; 70491; 80047; 80048; 84702; 85025; 85027; 86140; 86850; 86900; 86901; 87081; 87631; 90686; 96365; 96366; 96372; 96375; 99284; J1650; J1885; J2270; J2405; Q9967

== ENCOUNTER → 2021-02-03 | Outpatient (REF) | payer OTHER ==
[~2021-02-03] MED LIST changes: +AMOX875T2 PO; +CALALOT4 TOP; +CEPALOZ8 PO; +HYDR-643 PO; +LEVAINH INH
== END ==
LOC: M LAB REF 15:00
PROVIDERS: ATTEND Internal Medicine
DX: F19.11 Other psychoactive substance abuse, in remission (principal)

== ENCOUNTER → 2021-06-01 | Outpatient (REF) | payer OTHER | LOC: M PLALAB 08:20 | PROVIDERS: ATTEND Advanced Practice Midwife | DX: Z12.4 Encounter for screening for malignant neoplasm of cervix (principal) ==

== ENCOUNTER → 2021-06-02 | Outpatient (CLI) | payer OTHER | LOC: M PLALAB 09:58 | PROVIDERS: ATTEND Advanced Practice Midwife | DX: N92.0 Excessive and frequent menstruation with regular cycle (principal) ==

== ENCOUNTER → 2022-03-25 | Outpatient (CLI) | payer OTHER ==
[~2022-03-25] MED LIST changes: +BENZ1LOZ9 PO; -CEPALOZ8 PO
[2022-03-25 18:44] LABS: APPEARANCE, URINE MANUAL CLOUDY (CLEAR); COLOR, URINE MANUAL YELLOW (YELLOW)
[2022-03-25 18:46] LABS: BILIRUBIN, URINE MANUAL NEGATIVE (NEGATIVE); BLOOD URINE MANUAL TRACE (NEGATIVE); GLUCOSE, URINE (UA) MANUAL NEGATIVE (NEGATIVE); KETONE, URINE MANUAL NEGATIVE (NEGATIVE); LEUKOCYTE ESTERASE, URINE MAN NEGATIVE (NEGATIVE); NITRITE, URINE MANUAL NEGATIVE (NEGATIVE); PROTEIN, URINE MANUAL NEGATIVE (NEGATIVE); UROBILINOGEN, URINE MANUAL NORMAL (NORMAL)
[2022-03-25 20:00] LABS: RBC, URINE 0-1 /hpf (0-3); SQUAMOUS EPITHELIAL CELL URINE MOD AMOUNT /hpf (SMALL AMT)
[2022-03-25 20:01] LABS: AMORPHOUS SEDIMENT, URINE LARGE AMOUNT (NEGATIVE); BACTERIA, URINE SMALL AMOUNT; HYALINE CAST, URINE NONE SEEN /lpf (0-1)
== END ==
LOC: M PLALAB 09:51
PROVIDERS: ATTEND Advanced Practice Midwife
DX: R30.0 Dysuria (principal)

== ENCOUNTER → 2022-09-03 | Outpatient (REF) | payer OTHER | LOC: M SFHCWAGY 12:53 | PROVIDERS: ATTEND Advanced Practice Midwife | DX: Z12.4 Encounter for screening for malignant neoplasm of cervix (principal) ==

== ENCOUNTER → 2023-02-09 | Outpatient (REF) | payer OTHER ==
[2023-02-09 15:23] LABS: APPEARANCE, URINE CLEAR (CLEAR); BACTERIA, URINE AUTO NEGATIVE (NEGATIVE); BILIRUBIN, URINE AUTO NEGATIVE (NEGATIVE); BLOOD, URINE BLOOD NEGATIVE (NEGATIVE); COLOR, URINE YELLOW (YELLOW); GLUCOSE, URINE (UA) AUTO NEGATIVE (NEGATIVE); KETONE, URINE AUTO NEGATIVE (NEGATIVE); LEUKOCYTE ESTERASE, URINE AUTO NEGATIVE (NEGATIVE); MUCUS, URINE SMALL (NEGATIVE); NITRITE, URINE AUTO NEGATIVE (NEGATIVE); PROTEIN, URINE AUTO NEGATIVE (NEGATIVE); RBC, URINE AUTO 1 /HPF (0-3); SPECIFIC GRAVITY URINE AUTO 1.014 (1.002-1.035); SQUAMOUS EPITHELIAL CELL UR AU 2 /HPF (0-6); UROBILINOGEN, URINE AUTO 0.2 mg/dL (0.0-2.0); WBC, URINE AUTO 2 /HPF (0-3)
== END ==
LOC: M SMT 12:53
PROVIDERS: ATTEND Nurse Practitioner Family
DX: N30.90 Cystitis, unspecified without hematuria (principal)

== ENCOUNTER → 2023-02-10 | Outpatient (CLI) | payer OTHER ==
[2023-02-10 14:26] LABS: HEMATOCRIT 40.5 % (36.0-47.0); HEMOGLOBIN 13.6 g/dl (12.0-15.5); MEAN CORPUSCULAR HEMOGLOBIN 30.2 pg (27.0-33.0); MEAN CORPUSCULAR HGB CONC 33.6 g/dl (32.0-36.5); PLATELET COUNT, AUTOMATED 255 10^3/uL (150-450)
[2023-02-10 15:05] LABS: HIV 1&2 SCREEN NEGATIVE (NEGATIVE)
[2023-02-10 15:13] LABS: HEPATITIS C VIRUS ABY INDEX 0.05 INDEX (<0.8)
[2023-02-10 15:52] LABS: CHLAMYDIA DNA AMPLIFICATION NEGATIVE (NEGATIVE); GC DNA AMPLIFICATION NEGATIVE (NEGATIVE)
== END ==
LOC: M PLALAB 11:12
PROVIDERS: ATTEND Advanced Practice Midwife
DX: Z34.81 Encounter for supervision of other normal pregnancy, first trimester (principal); Z3A.00 Weeks of gestation of pregnancy not specified

== ENCOUNTER → 2023-02-21 | Outpatient (CLI) | payer OTHER | LOC: M RAD 11:00 | PROVIDERS: ATTEND Nurse Practitioner Family | DX: R39.89 Other symptoms and signs involving the genitourinary system (principal) ==

== ENCOUNTER → 2023-04-11 | Outpatient (CLI) | payer OTHER | LOC: M WHC 10:33 | PROVIDERS: ATTEND Advanced Practice Midwife | DX: Z34.82 Encounter for supervision of other normal pregnancy, second trimester (principal) ==

== ENCOUNTER → 2023-04-25 | Outpatient (CLI) | payer OTHER | LOC: M WHC 09:11 | PROVIDERS: ATTEND Advanced Practice Midwife | DX: Z34.92 Encounter for supervision of normal pregnancy, unspecified, second trimester (principal); Z3A.21 21 weeks gestation of pregnancy ==

== ENCOUNTER → 2023-05-11 | Outpatient (CLI) | payer OTHER | LOC: M WHC 12:43 | PROVIDERS: ATTEND Obstetrics & Gynecology | DX: Z36.2 Encounter for other antenatal screening follow-up (principal) ==

== ENCOUNTER → 2023-06-06 | Outpatient (CLI) | payer OTHER ==
[2023-06-06 14:04] LABS: HEMATOCRIT 36.3 % (36.0-47.0); HEMOGLOBIN 12.1 g/dl (12.0-15.5); MEAN CORPUSCULAR HEMOGLOBIN 31.4 pg (27.0-33.0); MEAN CORPUSCULAR HGB CONC 33.3 g/dl (32.0-36.5); MEAN CORPUSCULAR VOLUME 94.3 fl (80.0-96.0); PLATELET COUNT, AUTOMATED 265 10^3/uL (150-450); RED BLOOD COUNT 3.85 10^6/uL (4.00-5.40); WHITE BLOOD COUNT 10.8 10^3/uL (4.0-10.0)
== END ==
LOC: M PLALAB 08:44
PROVIDERS: ATTEND Obstetrics & Gynecology
DX: Z34.92 Encounter for supervision of normal pregnancy, unspecified, second trimester (principal); Z3A.00 Weeks of gestation of pregnancy not specified

== ENCOUNTER → 2023-08-04 | Outpatient (REF) | payer OTHER | LOC: M SFHCWAGY 12:05 | PROVIDERS: ATTEND Advanced Practice Midwife | DX: O98.513 Other viral diseases complicating pregnancy, third trimester (principal); Z3A.00 Weeks of gestation of pregnancy not specified ==

== ENCOUNTER 2023-09-02 09:41 | Inpatient (IN) | payer OTHER ==
[~2023-09-02] VITALS: Ht 170.2 cm; Wt 103.6 kg
[2023-09-02] VITALS (23 sets, daily range): BP systolic 114–151; BP diastolic 56–104
[2023-09-02] MEDS ORDERED: LIDOCAINE 1% MDV 20ML VIAL INFIL PRN (10:05)
[2023-09-02] MEDS ORDERED: CARBOPROST TROMETHAMINE 250 MCG/ML AMP IM PRN (10:05)
[2023-09-02] MEDS ORDERED: TRANEXAMIC ACID INJection 1,000 MG in NS 100 ML IV PRN (10:05)
[2023-09-02] MEDS ORDERED: METHYLERGONOVINE MALEATE 0.2MG/ML 1ML VIAL IM PRN (10:05)
[2023-09-02] MEDS ORDERED: LR 1,000 ML IV SCH (10:40)
[2023-09-02 10:50] LABS: HEMATOCRIT 32.9 % (36.0-47.0); HEMOGLOBIN 11.1 g/dl (12.0-15.5); MEAN CORPUSCULAR HEMOGLOBIN 28.8 pg (27.0-33.0); MEAN CORPUSCULAR HGB CONC 33.7 g/dl (32.0-36.5); MEAN CORPUSCULAR VOLUME 85.5 fl (80.0-96.0); PLATELET COUNT, AUTOMATED 216 10^3/uL (150-450); RED BLOOD COUNT 3.85 10^6/uL (4.00-5.40); WHITE BLOOD COUNT 9.4 10^3/uL (4.0-10.0)
[2023-09-02 11:51] LABS: HEPATITIS C VIRUS ABY INDEX 0.02 INDEX (<0.8)
[2023-09-02] MEDS: LACTATED RINGER'S 1000 ML IV STA (12:00)
[2023-09-02] MEDS: OXYTOCIN DRIP 30 UNITS in IV 1 EA IV SCH (12:00)
[2023-09-02] MEDS: LR 1,000 ML IV SCH (12:39)
[2023-09-02] MEDS ORDERED: LR 500 ML IV PRN (19:35)
[2023-09-02] MEDS ORDERED: ePHEDrine SULFATE 25 MG/5 ML(5MG/ML) SYRINGE IVP PRN (19:35)
[2023-09-02] MEDS ORDERED: NALOXONE INJ 0.4MG/1ML VIAL IV PRN (19:35)
[2023-09-02] MEDS ORDERED: diphenhydrAMINE 50MG/ML VIAL IV PRN (19:35)
[2023-09-02] MEDS ORDERED: EPIDURAL/PCA KEYS XX PRN (19:35)
[2023-09-02] MEDS: CALCIUM CARBONATE 500 MG CHEW U/D PO PRN (21:02)
[2023-09-02] MEDS: FENTANYL/ROPIVACAINE/NACL BAG 100 ML EPIDURAL SCH (21:05)
[2023-09-03] VITALS (24 sets, daily range): BP systolic 83–129; BP diastolic 50–94; TEMP 97.7; O2SAT 95–100
[2023-09-03] MEDS: ONDANSETRON 4MG 2ML VIAL IV PRN (00:57)
[2023-09-03] MEDS: ONDANSETRON 4MG 2ML VIAL IV ONE (04:43)
[2023-09-03] MEDS: OXYTOCIN DRIP 30 UNITS in IV 1 EA IV PRN (06:51)
[2023-09-03] MEDS ORDERED: ACETAMINOPHEN TAB 650MG DOSE (2X325MG) PO PRN (07:35)
[2023-09-03] MEDS ORDERED: MOM 30ML SUSPENSION UDC PO PRN (07:35)
[2023-09-03] MEDS ORDERED: CALCIUM CARBONATE 500 MG CHEW U/D PO PRN (07:35)
[2023-09-03] MEDS ORDERED: METHYLERGONOVINE MALEATE 0.2 MG TAB PO PRN (07:35)
[2023-09-03] MEDS ORDERED: IBUPROFEN 600MG TAB PO PRN (07:35)
[2023-09-03] MEDS ORDERED: RHO(D) IMMUNE GLOBULIN/MALTOSE 500MCG(2500IU)/2.2ML VIAL (WINRHO) IM SCH (07:35)
[2023-09-03] MEDS ORDERED: ANUSOL HC CREAM 30GM TOP PRN (07:35)
[2023-09-03] MEDS: IBUPROFEN 800 MG TAB PO PRN (08:01)
[2023-09-03] MEDS: PRENATAL VITAMINS CHEWABLE TABLET PO SCH (09:43)
[2023-09-03] MEDS: ACETAMINOPHEN 500 MG TAB PO PRN (11:02)
[2023-09-03] MEDS: DOCUSATE SODIUM 100MG CAPSULE PO PRN (16:35)
[2023-09-03] MEDS: DIBUCAINE 1% OINTMENT 30GM TOP PRN (16:35)
[2023-09-04 06:00] VITALS: BP 110/59; O2SAT 94
[2023-09-04 07:59] VITALS: BP 110/59; TEMP 98.1; O2SAT 94
[2023-09-04 18:00] VITALS: BP 119/68; O2SAT 100
[2023-09-05 06:00] VITALS: BP 101/54; O2SAT 98
[2023-09-05] MEDS: MEASLES,MUMPS,RUBELLA VACCINE INJ (MMR-II) SC.IMMUN ONE (07:57)
[2023-09-05] MEDS ORDERED: IBUP80TA PO (10:43)
[2023-09-05] MEDS ORDERED: ACET-683 PO (10:43)
== END 2023-09-05 15:35 | disposition home or self-care (01) | DRG 560 ==
LOC: M LDI 09:41 → M OBS 09-03 11:43
PROVIDERS: ADMIT Advanced Practice Midwife; ATTEND Advanced Practice Midwife
PROC: 3E033VJ Introduction of Other Hormone into Peripheral Vein, Percutaneous Approach (ICD-10-PCS; 2023-09-02)
PROC: 10E0XZZ Delivery of Products of Conception, External Approach (ICD-10-PCS; principal; 2023-09-03)
PROC: 0HQ9XZZ Repair Perineum Skin, External Approach (ICD-10-PCS; 2023-09-03)
DX: O48.0 Post-term pregnancy (principal); O70.0 First degree perineal laceration during delivery; Z37.0 Single live birth; Z3A.40 40 weeks gestation of pregnancy

== ENCOUNTER → 2023-10-12 | Outpatient (REF) | payer OTHER ==
[~2023-10-12] MED LIST changes: +ACET-683 PO; +IBUP80TA PO
[2023-10-12 13:15] LABS: APPEARANCE, URINE HAZY (CLEAR); BACTERIA, URINE AUTO 1+ (NEGATIVE); BILIRUBIN, URINE AUTO NEGATIVE (NEGATIVE); BLOOD, URINE BLOOD 1+ (NEGATIVE); COLOR, URINE YELLOW (YELLOW); GLUCOSE, URINE (UA) AUTO NEGATIVE (NEGATIVE); KETONE, URINE AUTO NEGATIVE (NEGATIVE); LEUKOCYTE ESTERASE, URINE AUTO 2+ (NEGATIVE); MUCUS, URINE SMALL (NEGATIVE); NITRITE, URINE AUTO NEGATIVE (NEGATIVE); PROTEIN, URINE AUTO NEGATIVE (NEGATIVE); RBC, URINE AUTO 2 /HPF (0-3); SPECIFIC GRAVITY URINE AUTO 1.016 (1.002-1.035); SQUAMOUS EPITHELIAL CELL UR AU 12 /HPF (0-6); UROBILINOGEN, URINE AUTO 0.2 mg/dL (0.0-2.0); WBC, URINE AUTO 11 /HPF (0-3)
== END ==
LOC: M SFHCWAGY 12:17
PROVIDERS: ATTEND Advanced Practice Midwife
DX: R30.0 Dysuria (principal)

== ENCOUNTER → 2024-10-19 | Outpatient (CLI) | payer OTHER ==
[~2024-10-19] MED LIST changes: +LEVA15HF2 INH; -LEVAINH INH
== END ==
LOC: M WHC 08:26
PROVIDERS: ATTEND Advanced Practice Midwife
DX: N92.0 Excessive and frequent menstruation with regular cycle (principal); N88.8 Other specified noninflammatory disorders of cervix uteri

== ENCOUNTER 2025-02-11 06:04 | Day surgery (SDC) | payer OTHER ==
[~2025-02-11] VITALS: Ht 170.2 cm; Wt 84.7 kg
[2025-02-11 06:37] LABS: PLATELET COUNT, AUTOMATED 231 10^3/uL (150-450)
[2025-02-11] MEDS: LR 1,000 ML IV SCH (06:40)
[2025-02-11] MEDS ORDERED: KETOROLAC 30 MG/ML 1 ML VIAL As Ordered ONE (06:57)
[2025-02-11] MEDS ORDERED: dexAMETHasone 4 MG/ML 1 ML VIAL As Ordered ONE (06:57)
[2025-02-11] MEDS ORDERED: ONDANSETRON 4MG/2ML VIAL As Ordered ONE (06:57)
[2025-02-11] MEDS ORDERED: LIDOCAINE 2% 100 MG/5 ML SDV (FOR ANES.) As Ordered ONE (06:57)
[2025-02-11] MEDS ORDERED: ACETAMINOPHEN 1000MG/100ML IV BAG As Ordered ONE (06:57)
[2025-02-11] MEDS ORDERED: ROCURONIUM BROMIDE 50MG/5ML VIAL As Ordered ONE (06:58)
[2025-02-11] MEDS ORDERED: MIDAZOLAM INJ 2 MG/2 ML VIAL As Ordered ONE (06:58)
[2025-02-11] MEDS ORDERED: dexmedeTOMIDine (4 MCG/ML) 200 MCG/50 ML BTL As Ordered ONE (06:59)
[2025-02-11] MEDS: SCOPOLAMINE 1MG TRANSDERMAL PATCH TOP ONE (07:15)
[2025-02-11] MEDS: ceFAZolin SOD 2 GM IV ONCE IV ONE (07:50)
[2025-02-11] MEDS ORDERED: SUGAMMADEX SODIUM 200 MG/2 ML VIAL As Ordered ONE (08:02)
[2025-02-11] MEDS ORDERED: HYDROmorphone HCL 2 MG/ML 1 ML VIAL As Ordered ONE (08:58)
[2025-02-11] MEDS ORDERED: LR 1,000 ML IV SCH (09:25)
[2025-02-11] MEDS ORDERED: HYDROMORPHONE HCL 0.5 MG/0.5 ML SYRINGE IV PRN (09:25)
[2025-02-11] MEDS: ONDANSETRON 4MG/2ML VIAL IV PRN (09:49)
[2025-02-11] MEDS ORDERED: PERCOCET 5MG/325MG TAB PO PRN ×2 (11:45)
[2025-02-11 12:40] VITALS: BP 98/51; TEMP 97.3; O2SAT 98
[2025-02-11] MEDS ORDERED: ONDA-282 PO (13:00)
[2025-02-11] MEDS ORDERED: KETOROLAC 30 MG/ML 1 ML VIAL IV SCH (14:00)
== END 2025-02-11 12:50 | disposition home or self-care (01) ==
LOC: M SDC 06:04
PROVIDERS: ATTEND Obstetrics & Gynecology
DX: D25.1 Intramural leiomyoma of uterus (principal); N93.9 Abnormal uterine and vaginal bleeding, unspecified; J45.909 Unspecified asthma, uncomplicated; Z79.899 Other long term (current) drug therapy
CPT/HCPCS: 36415; 58571; 81025; 85027; 86850; 86900; 86901; 88307; J0131; J0665; J0688; J1100; J1171; J1885; J2250; J2405; J2765; J3010; S2900

== ENCOUNTER 2025-02-25 22:05 | Emergency (ER) | payer OTHER ==
[~2025-02-25] VITALS: Ht 170.2 cm; Wt 86.5 kg
[~2025-02-25 22:05] MED LIST changes: +ONDA-282 PO
[2025-02-25 22:09] VITALS: TEMP 97.8
[2025-02-26 01:10] LABS: BASO # 0.1 10^3/uL (0.0-0.2); BASO % 1.1 % (0.0-1.0); EOS # 0.3 10^3/uL (0.0-0.5); EOS % 3.7 % (0.0-3.0); LYMPH # 3.0 10^3/uL (1.5-5.0); LYMPH % 38.3 % (24.0-44.0); MONO # 0.6 10^3/uL (0.0-0.8); MONO % 8.1 % (2.0-8.0); NEUTROPHILS # 3.9 10^3/uL (1.5-8.5); NEUTROPHILS % 48.5 % (36.0-66.0); PLATELET COUNT, AUTOMATED 342 10^3/uL (150-450)
[2025-02-26] MEDS ORDERED: ISOVUE-370 76% 100 ML VIAL As Ordered ONE (01:14)
[2025-02-26 01:35] LABS: CALCIUM LEVEL 8.6 MG/DL (8.5-10.1); CARBON DIOXIDE LEVEL 29.0 MMOL/L (20-31); CHLORIDE LEVEL 106.0 MMOL/L (98-107); CREATININE FOR GFR 0.88 MG/DL (0.55-1.30); GLOMERULAR FILTRATION RATE 88.4 (>60); POTASSIUM SERUM 4.0 MMOL/L (3.5-5.1); SODIUM LEVEL 144.0 MMOL/L (136-145)
[2025-02-26 05:30] VITALS: BP 105/60
[2025-02-26 05:45] VITALS: O2SAT 97
== END 2025-02-26 06:01 | disposition home or self-care (01) ==
LOC: M ED 22:05
DX: N93.9 Abnormal uterine and vaginal bleeding, unspecified (principal); Z90.710 Acquired absence of both cervix and uterus; K56.7 Ileus, unspecified; K59.00 Constipation, unspecified; J45.909 Unspecified asthma, uncomplicated; F41.9 Anxiety disorder, unspecified; F32.A Depression, unspecified; Z79.1 Long term (current) use of non-steroidal anti-inflammatories (NSAID); Z79.899 Other long term (current) drug therapy
CPT/HCPCS: 36415; 74177; 76856; 80047; 80048; 85025; 86850; 86900; 86901; 93976; 99284; 99395; Q9967